=== PATIENT | female | born 1990 | race Caucasian/White ===

== ENCOUNTER 2019-03-13 12:32 | Outpatient (CLI) | payer BC ==
--- NOTE | 2019-03-13 13:13 | ULT ---
US Pelvic Transvag W Doppler HISTORY: Amenorrhea x1 year COMPARISON: None. FINDINGS: Real-time imaging of the pelvis was obtained both transabdominally as well as with an endov aginal probe. This shows a fairly prominently retroverted uterus measuring 2.9 x 4.3 x 5.5 cm. The endometrium is 6 mm. Slightly prominent follicles are seen involving the left adnexa. Right ovary is normal in appearance. No evidence of any significant free fluid. Doppler evaluation with spectral analysis: Normal flow shown to both adnexa. IMPRESSION: Unremarkable pelvic ultrasound.
== END 2019-03-13 12:33 | disposition home or self-care (01) ==
LOC: SCSULT 12:32
PROVIDERS: ATTEND Physician Assistant
DX: N91.2 Amenorrhea, unspecified (principal)
CPT/HCPCS: 76856